=== PATIENT | female | born 1955 ===

== ENCOUNTER 2021-06-13 08:34 | Inpatient (IN) ==
[2021-06-13] MEDS ORDERED: GLUCAGON 1 MG VIAL IM PRN (15:14)
[2021-06-13] MEDS ORDERED: DEXTROSE 10% 250 ML BAG IV PRN (15:30)
[2021-06-13] MEDS ORDERED: ENOXAPARIN 30 MG/0.3 ML SYRINGE SUBCUT SCH (15:30)
[2021-06-13] MEDS: LACTATED RINGERS 1,000 ML IV SCH (16:20)
[2021-06-13 16:24] LABS: Basophils % 0.1 % (0.0-0.8); Eosinophils % 0.1 % (0.00-10.9); Hematocrit 42.9 VOL% (35.7-47.0); Hemoglobin 13.2 GM/DL (12.0-16.0); Immature Granulocytes % 0.4 %; Immature Granulocytes Absolute 0.03 #; Lymphocytes # 1.6 10*3/uL (1.4-4.0); Lymphocytes % 22.8 % (21.3-54.2); Mean Corpuscular HGB Conc 30.8 GM/DL (32-36); Mean Corpuscular Volume 87.9 FL (87-102); Mean Platelet Volume 10.3 FL (9.6-12.0); Monocytes % 15.2 % (1.7-12.7); Neutrophils % 61.4 % (38.7-73.9); Platelet Count 366 T/CUMM (130-400); Red Blood Count 4.88 MC/CUMM (3.8-5.5); Red Cell Distribution Width 13.5 % (9.3-17.3); White Blood Count 7.1 T/CUMM (4-12)
[2021-06-13 16:42] LABS: Calcium 8.9 MG/DL (8.5-10.1); Osmolality,Calculated 280.8 MOS/KG (273-304); Potassium 3.6 MMOL/L (3.5-5.1)
[2021-06-14] MEDS: LACTATED RINGERS 1,000 ML IV SCH ×3 (00:34→18:11)
[2021-06-14 06:20] LABS: Basophils % 0.2 % (0.0-0.8); Eosinophils % 0.4 % (0.00-10.9); Hematocrit 36.5 VOL% (35.7-47.0); Hemoglobin 11.6 GM/DL (12.0-16.0); Immature Granulocytes % 0.4 %; Immature Granulocytes Absolute 0.02 #; Lymphocytes # 1.5 10*3/uL (1.4-4.0); Mean Corpuscular HGB Conc 31.8 GM/DL (32-36); Mean Corpuscular Volume 86.5 FL (87-102); Mean Platelet Volume 9.8 FL (9.6-12.0); Monocytes % 18.1 % (1.7-12.7); Neutrophils % 51.9 % (38.7-73.9); Platelet Count 301 T/CUMM (130-400); Red Blood Count 4.22 MC/CUMM (3.8-5.5); Red Cell Distribution Width 13.5 % (9.3-17.3)
[2021-06-14 06:36] LABS: Calcium 8.7 MG/DL (8.5-10.1); Osmolality,Calculated 280.5 MOS/KG (273-304); Potassium 3.4 MMOL/L (3.5-5.1)
[2021-06-14 07:38] LABS: Band Neutrophils 2 % (0-10); Lymphocytes 26 % (20-55); Metamyelocytes 1 %; Platelet Estimate Increased; Segmented Neutrophils 65 % (50-85); Total Cells Counted 100
[2021-06-14 07:39] LABS: Smudge Cells 1+
[2021-06-14] MEDS: PANTOPRAZOLE 40 MG VIAL IV SCH (09:55)
[2021-06-14] MEDS: POTASSIUM CHLORIDE RIDER 10 MEQ/100 ML PREMIX IV SCH ×2 (09:55→14:33)
[2021-06-14] MEDS ORDERED: POTASSIUM CHLORIDE RIDER 10 MEQ/100 ML PREMIX IV SCH (14:30)
[2021-06-14] MEDS: hydrALAZINE 20 MG/1 ML VIAL IV PRN (18:26)
[2021-06-15] MEDS: hydrALAZINE 20 MG/1 ML VIAL IV PRN (04:25)
[2021-06-15 06:58] LABS: Basophils % 0.4 % (0.0-0.8); Eosinophils % 0.4 % (0.00-10.9); Hematocrit 39.9 VOL% (35.7-47.0); Hemoglobin 12.4 GM/DL (12.0-16.0); Immature Granulocytes % 0.6 %; Immature Granulocytes Absolute 0.04 #; Lymphocytes # 1.8 10*3/uL (1.4-4.0); Lymphocytes % 25.9 % (21.3-54.2); Mean Corpuscular HGB Conc 31.1 GM/DL (32-36); Mean Corpuscular Volume 86.4 FL (87-102); Monocytes % 13.1 % (1.7-12.7); Neutrophils % 59.6 % (38.7-73.9); Platelet Count 312 T/CUMM (130-400); Red Blood Count 4.62 MC/CUMM (3.8-5.5); Red Cell Distribution Width 13.4 % (9.3-17.3); White Blood Count 6.9 T/CUMM (4-12)
[2021-06-15 07:16] LABS: Calcium 8.8 MG/DL (8.5-10.1); Osmolality,Calculated 273.7 MOS/KG (273-304); Potassium 3.4 MMOL/L (3.5-5.1)
[2021-06-15] MEDS: PANTOPRAZOLE 40 MG VIAL IV SCH (08:47)
[2021-06-15] MEDS: HYDROmorphone 2 MG/1 ML VIAL IV PRN ×2 (08:48→22:49)
[2021-06-15] MEDS: LACTATED RINGERS 1,000 ML IV SCH ×4 (11:38→20:26)
[2021-06-15] MEDS: ONDANSETRON 4 MG/2 ML VIAL IV PRN (18:05)
[2021-06-16] MEDS: LACTATED RINGERS 1,000 ML IV SCH ×3 (04:29→19:18)
[2021-06-16] MEDS: HYDROmorphone 2 MG/1 ML VIAL IV PRN ×2 (04:55→20:33)
[2021-06-16 05:41] LABS: Basophils % 0.3 % (0.0-0.8); Eosinophils % 0.4 % (0.00-10.9); Hematocrit 39.2 VOL% (35.7-47.0); Hemoglobin 12.3 GM/DL (12.0-16.0); Immature Granulocytes % 0.4 %; Immature Granulocytes Absolute 0.03 #; Lymphocytes # 1.8 10*3/uL (1.4-4.0); Lymphocytes % 24.3 % (21.3-54.2); Mean Corpuscular HGB Conc 31.4 GM/DL (32-36); Mean Corpuscular Volume 86.3 FL (87-102); Mean Platelet Volume 9.8 FL (9.6-12.0); Monocytes % 12.2 % (1.7-12.7); Neutrophils % 62.4 % (38.7-73.9); Platelet Count 336 T/CUMM (130-400); Red Blood Count 4.54 MC/CUMM (3.8-5.5); Red Cell Distribution Width 13.3 % (9.3-17.3); White Blood Count 7.4 T/CUMM (4-12)
[2021-06-16 06:28] LABS: Calcium 8.7 MG/DL (8.5-10.1); Osmolality,Calculated 273.8 MOS/KG (273-304); Potassium 3.5 MMOL/L (3.5-5.1)
[2021-06-16] MEDS: PANTOPRAZOLE 40 MG VIAL IV SCH (08:52)
[2021-06-16] MEDS: hydrALAZINE 20 MG/1 ML VIAL IV PRN (11:49)
[2021-06-16] MEDS: amLODIPine 10 MG TABLET PO SCH (14:24)
[2021-06-16] MEDS: ONDANSETRON 4 MG/2 ML VIAL IV PRN ×2 (14:24→20:32)
[2021-06-16] MEDS: LOSARTAN 50 MG TABLET PO SCH (14:24)
[2021-06-17] MEDS: LACTATED RINGERS 1,000 ML IV SCH ×2 (00:54→15:58)
[2021-06-17] MEDS: amLODIPine 10 MG TABLET PO SCH (10:05)
[2021-06-17] MEDS: ONDANSETRON 4 MG/2 ML VIAL IV PRN (10:05)
[2021-06-17] MEDS: LOSARTAN 50 MG TABLET PO SCH (10:06)
[2021-06-17] MEDS: PANTOPRAZOLE 40 MG VIAL IV SCH (10:07)
[2021-06-17] MEDS: SIMETHICONE CHEW 125 MG TABLET PO PRN ×2 (12:23→20:32)
[2021-06-18] MEDS: LACTATED RINGERS 1,000 ML IV SCH ×2 (02:17)
[2021-06-18] MEDS: SIMETHICONE CHEW 125 MG TABLET PO PRN ×3 (04:07→21:30)
[2021-06-18] MEDS: ONDANSETRON 4 MG/2 ML VIAL IV PRN (04:08)
[2021-06-18 04:52] LABS: Basophils % 0.4 % (0.0-0.8); Eosinophils # 0.1 10*3/uL (0.0-0.87); Eosinophils % 1.3 % (0.00-10.9); Hematocrit 37.8 VOL% (35.7-47.0); Immature Granulocytes % 0.6 %; Immature Granulocytes Absolute 0.03 #; Lymphocytes # 1.6 10*3/uL (1.4-4.0); Lymphocytes % 32.9 % (21.3-54.2); Mean Corpuscular HGB Conc 31.7 GM/DL (32-36); Mean Corpuscular Volume 85.7 FL (87-102); Mean Platelet Volume 9.6 FL (9.6-12.0); Monocytes % 15.7 % (1.7-12.7); Neutrophils % 49.1 % (38.7-73.9); Platelet Count 338 T/CUMM (130-400); Red Blood Count 4.41 MC/CUMM (3.8-5.5); Red Cell Distribution Width 13.1 % (9.3-17.3); White Blood Count 4.8 T/CUMM (4-12)
[2021-06-18 05:13] LABS: Calcium 8.2 MG/DL (8.5-10.1); Osmolality,Calculated 276.4 MOS/KG (273-304); Potassium 3.1 MMOL/L (3.5-5.1)
[2021-06-18 06:04] LABS: Anisocytosis 1+; Band Neutrophils 5 % (0-10); Eosinophils 2 % (0-10); Lymphocytes 30 % (20-55); Macrocytosis Slight; Platelet Estimate Normal; Segmented Neutrophils 47 % (50-85); Smudge Cells Few; Total Cells Counted 100
[2021-06-18] MEDS ORDERED: POTASSIUM CHLORIDE 20 MEQ TABLET PO ONE (08:30)
[2021-06-18] MEDS: LOSARTAN 50 MG TABLET PO SCH (08:34)
[2021-06-18] MEDS: PANTOPRAZOLE 40 MG VIAL IV SCH (08:34)
[2021-06-18] MEDS: amLODIPine 10 MG TABLET PO SCH (08:34)
[2021-06-18] MEDS: OLMESARTAN 20 MG TABLET PO SCH (16:35)
[2021-06-19] MEDS: ONDANSETRON 4 MG/2 ML VIAL IV PRN (00:35)
[2021-06-19] MEDS: HYDROmorphone 2 MG/1 ML VIAL IV PRN ×3 (01:43→21:37)
[2021-06-19 06:51] LABS: Basophils % 0.3 % (0.0-0.8); Eosinophils # 0.1 10*3/uL (0.0-0.87); Eosinophils % 0.9 % (0.00-10.9); Hematocrit 36.7 VOL% (35.7-47.0); Hemoglobin 11.7 GM/DL (12.0-16.0); Immature Granulocytes % 0.7 %; Immature Granulocytes Absolute 0.04 #; Lymphocytes # 2.2 10*3/uL (1.4-4.0); Lymphocytes % 36.6 % (21.3-54.2); Mean Corpuscular HGB Conc 31.9 GM/DL (32-36); Mean Corpuscular Volume 85.9 FL (87-102); Mean Platelet Volume 9.6 FL (9.6-12.0); Monocytes % 17.3 % (1.7-12.7); Neutrophils % 44.2 % (38.7-73.9); Platelet Count 361 T/CUMM (130-400); Red Blood Count 4.27 MC/CUMM (3.8-5.5); Red Cell Distribution Width 13.2 % (9.3-17.3); White Blood Count 5.9 T/CUMM (4-12)
[2021-06-19 07:11] LABS: Calcium 8.2 MG/DL (8.5-10.1); Osmolality,Calculated 276.4 MOS/KG (273-304); Potassium 3.2 MMOL/L (3.5-5.1)
[2021-06-19] MEDS ORDERED: POTASSIUM CHLORIDE 20 MEQ TABLET PO ONE (07:45)
[2021-06-19 08:35] LABS: Anisocytosis Slight; Atypical Lymphocytes Few; Eosinophils 1 % (0-10); Hypochromia Slight; Lymphocytes 43 % (20-55); Metamyelocytes 1 %; Ovalocytes Few; Platelet Estimate Normal; Reactive Lymphocytes Few; Segmented Neutrophils 45 % (50-85); Total Cells Counted 100
[2021-06-19] MEDS: PANTOPRAZOLE 40 MG VIAL IV SCH (08:54)
[2021-06-19] MEDS: amLODIPine 10 MG TABLET PO SCH (10:06)
[2021-06-19] MEDS: hydrALAZINE 20 MG/1 ML VIAL IV PRN (13:27)
[2021-06-19] MEDS: SIMETHICONE CHEW 125 MG TABLET PO PRN ×2 (13:51→21:37)
[2021-06-19] MEDS: OLMESARTAN 20 MG TABLET PO SCH (16:42)
[2021-06-20] MEDS ORDERED: POTASSIUM CHLORIDE 20 MEQ TABLET PO SCH (09:00)
[2021-06-20] MEDS: PANTOPRAZOLE 40 MG VIAL IV SCH (09:36)
[2021-06-20] MEDS: amLODIPine 10 MG TABLET PO SCH (09:36)
[2021-06-20 12:44] VITALS: BP 156/91
== END 2021-06-20 14:40 | disposition home health service (06) | DRG 390 ==
LOC: SUATTDRO 14:44 → N.3E 14:44 → UNDODISIN 06-20 13:26
PROVIDERS: ADMIT Internal Medicine; ATTEND Hospitalist